=== PATIENT | male | born 1960 | race Caucasian/White ===

== ENCOUNTER 2017-11-14 08:48 | Day surgery (SDC) | payer OTHER ==
[2017-11-14] MEDS: DUOVISC (0.50ML VISCOAT/0.55ML PROVISC) OPHTH KIT As Ordered ×2 (06:58→11:20)
[2017-11-14] MEDS: PROPARACAINE 0.5% OPHTH SOL 15ML OD (09:55)
[2017-11-14] MEDS: OFLOXACIN 0.3 % (OCUFLOX) OPTH SOL 5ML OD (09:55)
[2017-11-14] MEDS: TROPICAMIDE 1% OPHTH SOLN 2ML OD (09:55)
[2017-11-14] MEDS: PHENYLEPHRINE 2.5% OPHTH SOL 2ML OD (09:55)
[2017-11-14] MEDS ORDERED: fentaNYL 100 MCG/2 ML INJECTION (J3010) As Ordered (10:10)
[2017-11-14] MEDS ORDERED: MIDAZOLAM INJ 2 MG/2 ML VIAL (J2250) As Ordered (10:10)
[2017-11-14] MEDS: LIDOCAINE 1% SDV 5 ML VIAL As Ordered ×2 (10:56→11:20)
[2017-11-14] MEDS: POVIDONE-IODINE 5% OPHTH PREP SOL 30ML As Ordered (11:15)
[2017-11-14] MEDS: CEFUROXIME 1MG/0.1ML INTRACAMERAL INJ As Ordered (11:20)
[2017-11-14] MEDS: BALANCED SALT IRRIGATION SOLUTION 500ML BAG (FOR OR EYE MACHINE) As Ordered (11:20)
== END 2017-11-14 12:35 | disposition home or self-care (01) ==
LOC: M SDC 08:48
DX: H25.11 Age-related nuclear cataract, right eye (principal); H21.561 Pupillary abnormality, right eye; K21.9 Gastro-esophageal reflux disease without esophagitis; H40.10X0 Unspecified open-angle glaucoma, stage unspecified
CPT/HCPCS: 66982

== ENCOUNTER → 2019-11-25 | Outpatient (REF) | payer OTHER ==
[2019-11-25 12:59] LABS: HEMATOCRIT 43.2 % (42.0-52.0); HEMOGLOBIN 15.1 g/dl (13.5-17.5); MEAN CORPUSCULAR VOLUME 94.3 fl (80.0-96.0); PLATELET COUNT, AUTOMATED 224 10^3/uL (150-450); RED BLOOD COUNT 4.58 10^6/uL (4.30-6.10); WHITE BLOOD COUNT 10.1 10^3/uL (4.0-10.0)
[2019-11-25 13:22] LABS: ALBUMIN 3.4 GM/DL (3.2-5.2); BILIRUBIN,TOTAL 0.5 MG/DL (0.2-1.0); CALCIUM LEVEL 8.5 MG/DL (8.5-10.1); CREATININE FOR GFR 1.37 MG/DL (0.70-1.30); POTASSIUM SERUM 4.2 MEQ/L (3.5-5.1); TOTAL PROTEIN 6.6 GM/DL (6.4-8.2)
[2019-11-25 14:02] LABS: ANISOCYTOSIS 1+; LYMPHOCYTES 7 % (16-44); MONOCYTES 1 % (0-5); NEUTROPHILS 89 % (28-66); PLATELET ESTIMATE NORMAL (NORMAL)
[2019-11-26 18:12] LABS: Lyme Disease IgG/IgM Antibodie <0.91 ISR (0.00-0.90); Lyme Disease IgM Ab Quantitati <0.80 index (0.00-0.79)
== END ==
LOC: M LABDRWAD 12:27
PROVIDERS: ATTEND Physician Assistant
DX: R50.9 Fever, unspecified (principal); R19.7 Diarrhea, unspecified; Z20.828 Contact with and (suspected) exposure to other viral communicable diseases